=== PATIENT | female | born 1985 | race American Indian/Alaskan Native ===

== ENCOUNTER 2016-11-05 19:24 | Emergency (ER) | payer OTHER ==
[2016-11-05 20:45] LABS: Bacteria,Urine 1+ /HPF (Negative); Bilirubin,Urine NEG (Negative); Blood,Urine SM (Negative); Ketones,Urine NEG (Negative); Leukocyte Esterase,Urine NEG (Negative); Mucus,Urine FEW /HPF; Nitrite,Urine NEG (Negative); Protein,Urine <15 mg/dL mg/dL (Negative); Urobilinogen,Urine < 2.0 mg/dL (<2.0)
[2016-11-05 21:23] LABS: Basophils % (Auto) 0.4 % (0.0-1.8); Eosinophils % (Auto) 2.2 % (0.0-4.3); Hematocrit 35.4 % (30.3-42.9); Hemoglobin 11.9 gm/dl (10.1-14.3); Mean Corpuscular HGB Conc 34 % (30-34); Mean Corpuscular Hemoglobin 30 pg (28-32); Mean Corpuscular Volume 91 fl (79-97); Platelet Count 228 K/mm3 (140-440); Red Blood Count 3.91 M/mm3 (3.65-5.03); White Blood Count 6.4 K/mm3 (4.5-11.0)
[2016-11-05 21:49] LABS: Alanine Aminotransferase 8 units/L (7-56); Albumin 3.8 g/dL (3.9-5); Albumin/Globulin Ratio 1.1 %; Alkaline Phosphatase 52 units/L (35-129); Anion Gap 19 mmol/L; BUN/Creatinine Ratio 11.66; Blood Urea Nitrogen 7 mg/dL (7-17); Calcium 8.8 mg/dL (8.4-10.2); Carbon Dioxide 23 mmol/L (22-30); Chloride 100.9 mmol/L (98-107); Glucose 140 mg/dL (65-100); Lipase 23 units/L (13-60); Potassium 3.6 mmol/L (3.6-5.0); Sodium 139 mmol/L (137-145); Total Protein 7.2 g/dL (6.3-8.2)
--- NOTE | 2016-11-06 06:30 | Emergency Department Report ---
ED General Adult HPI - General Chief complaint: Abdominal Pain Stated complaint: SNEEZING/FATIGUE Time Seen by Provider: 11/06/16 06:19 Source: patient Mode of arrival: Ambulatory Limitations: No Limitations - History of Present Illness Initial comments: Patient complains of some vague abdominal pain which she actually states she forgot about by the time of my encounter. She states that she forgot why she came here. Then she remembered she felt weak and had a child sick at home and was concerned. She stated that she was sneezing. She is not complaining of lower back pain or abdominal pain at this point as noted in the triage record. She states she needs a primary care provider and a work excuse. -: Gradual, days(s) Location: back, abdomen Radiation: non-radiation Severity scale (0 -10): 3 Quality: aching Consistency: now resolved Improves with: none Associated Symptoms: denies other symptoms (except as above) Treatments Prior to Arrival: none - Related Data Allergies Allergy/AdvReac Type Severity Reaction Status Date / Time aspirin Allergy Hives Verified 11/05/16 19:57 ED Review of Systems ROS: Stated complaint: SNEEZING/FATIGUE Other details as noted in HPI Constitutional: denies: chills, fever Eyes: denies: eye pain, eye discharge, vision change ENT: denies: ear pain, throat pain Respiratory: other (cold symptoms sneezing). denies: cough, shortness of breath , wheezing Cardiovascular: denies: chest pain, palpitations Endocrine: no symptoms reported Gastrointestinal: abdominal pain. denies: nausea, diarrhea Genitourinary: denies: urgency, dysuria, discharge Musculoskeletal: back pain. denies: joint swelling, arthralgia Skin: denies: rash, lesions Neurological: denies: headache, weakness, paresthesias Psychiatric: denies: anxiety, depression Hematological/Lymphatic: denies: easy bleeding, easy bruising ED Past Medical Hx - Past Medical History Previous Medical History?: Yes Hx Kidney Stones: Yes Hx Asthma: Yes - Surgical History Past Surgical History?: Yes Hx Breast Surgery: Yes (Reduction) - Social History Smoking Status: Current Every Day Smoker Substance Use Type: Alcohol ED Physical Exam - General Limitations: No Limitations General appearance: alert, in no apparent distress - Head Head exam: Present: atraumatic, normocephalic - Eye Eye exam: Present: normal appearance, PERRL, EOMI. Absent: scleral icterus - ENT ENT exam: Present: normal orophraynx, mucous membranes moist - Neck Neck exam: Present: normal inspection. Absent: tenderness, meningismus, lymphadenopathy - Respiratory Respiratory exam: Present: normal lung sounds bilaterally. Absent: respiratory distress - Cardiovascular Cardiovascular Exam: Present: regular rate, normal rhythm. Absent: systolic murmur, diastolic murmur, rubs, gallop - GI/Abdominal GI/Abdominal exam: Present: soft, normal bowel sounds. Absent: distended, tenderness, guarding, rebound, rigid, organomegaly, mass - Extremities Exam Extremities exam: Present: normal inspection - Back Exam Back exam: Present: normal inspection - Neurological Exam Neurological exam: Present: alert, oriented X3, CN II-XII intact. Absent: motor sensory deficit - Psychiatric Psychiatric exam: Present: normal affect, normal mood - Skin Skin exam: Present: warm, dry, intact, normal color. Absent: rash ED Course Vital Signs 11/05/16 11/06/16 19:50 06:15 Temperature 98.3 F Pulse Rate 69 84 Respiratory 18 16 Rate Blood Pressure 132/78 134/59 [Right] O2 Sat by Pulse 100 98 Oximetry ED Medical Decision Making - Lab Data Result diagrams: 11/05/16 20:50 11/05/16 20:50 Laboratory Results - last 24 hr 11/05/16 11/05/16 11/05/16 20:00 20:50 20:50 WBC 6.4 RBC 3.91 Hgb 11.9 Hct 35.4 MCV 91 MCH 30 MCHC 34 RDW 14.0 Plt Count 228 Lymph % (Auto) 36.1 H [place] % (Auto) 6.1 Eos % (Auto) 2.2 Baso % (Auto) 0.4 Lymph # 2.3 [place] # 0.4 Eos # 0.1 Baso # 0.0 Seg Neutrophils % 55.2 Seg Neutrophils # 3.6 Sodium 139 Potassium 3.6 Chloride 100.9 Carbon Dioxide 23 Anion Gap 19 BUN 7 Creatinine 0.6 L Estimated GFR > 60 BUN/Creatinine Ratio 11.66 Glucose 140 H Calcium 8.8 Total Bilirubin 0.20 AST 13 ALT 8 Alkaline Phosphatase 52 Total Protein 7.2 Albumin 3.8 L Albumin/Globulin Ratio 1.1 Lipase 23 HCG, Qual Urine Color Yellow Urine Turbidity Clear Urine pH 7.0 Ur Specific [place] 1.017 Urine Protein <15 mg/dl Urine Glucose (UA) Neg Urine Ketones Neg Urine Blood Sm Urine Nitrite Neg Urine Bilirubin Neg Urine Urobilinogen < 2.0 Ur Leukocyte Esterase Neg Urine WBC (Auto) 1.0 Urine RBC (Auto) 3.0 U Epithel Cells (Auto) 3.0 Urine Bacteria (Auto) 1+ Urine Mucus Few 11/05/16 20:50 WBC RBC Hgb Hct MCV MCH MCHC RDW Plt Count Lymph % (Auto) [place] % (Auto) Eos % (Auto) Baso % (Auto) Lymph # [place] # Eos # Baso # Seg Neutrophils % Seg Neutrophils # Sodium Potassium Chloride Carbon Dioxide Anion Gap BUN Creatinine Estimated GFR BUN/Creatinine Ratio Glucose Calcium Total Bilirubin AST ALT Alkaline Phosphatase Total Protein Albumin Albumin/Globulin Ratio Lipase HCG, Qual Negative Urine Color Urine Turbidity Urine pH Ur Specific [place] Urine Protein Urine Glucose (UA) Urine Ketones Urine Blood Urine Nitrite Urine Bilirubin Urine Urobilinogen Ur Leukocyte Esterase Urine WBC (Auto) Urine RBC (Auto) U Epithel Cells (Auto) Urine Bacteria (Auto) Urine Mucus Critical care attestation.: If time is entered above; I have spent that time in minutes in the direct care of this critically ill patient, excluding procedure time. ED Disposition Clinical Impression: Viral illness Disposition: DC-01 TO HOME OR SELFCARE Is pt being admited?: No Does the pt Need Aspirin: No Condition: Stable Instructions: Abdominal Pain (ED), Viral Syndrome (ED) Additional Instructions: [id number] medicine is recommended for sneezing such as Zyrtec or Claritin. Follow-up with a primary care provider. Return any acute change or problem as needed. Referrals: PRIMARY MD JUDITH [Primary Care Provider] - 3-5 Days [facility] [Provider Group] - 3-5 Days ADIA BANUELOS MD [Staff Physician] - 3-5 Days Forms: Work/School Release Form(ED) Time of Disposition: 06:57
[2016-11-06 08:16] VITALS: BP 115/65
== END 2016-11-06 07:30 | disposition home or self-care (01) ==
LOC: ED 19:24
DX: B34.9 Viral infection, unspecified (principal); J45.909 Unspecified asthma, uncomplicated; F17.200 Nicotine dependence, unspecified, uncomplicated
CPT/HCPCS: 36415; 80053; 81001; 83690; 84703; 85025

== ENCOUNTER 2017-11-04 20:42 | Emergency (ER) | payer OTHER ==
[2017-11-04 21:16] VITALS: BP 137/80
[2017-11-04] MEDS ORDERED: PROVENTIL IH ONE (21:18)
[2017-11-04 21:44] LABS: Basophils % (Auto) 0.5 % (0.0-1.8); Eosinophils % (Auto) 0.2 % (0.0-4.3); Hematocrit 36.6 % (30.3-42.9); Hemoglobin 12.2 gm/dl (10.1-14.3); Lymphocytes # (Auto) 1.4 K/mm3 (1.2-5.4); Lymphocytes % (Auto) 20.4 % (13.4-35.0); Mean Corpuscular HGB Conc 33 % (30-34); Mean Corpuscular Hemoglobin 30 pg (28-32); Mean Corpuscular Volume 89 fl (79-97); Monocytes # (Auto) 0.4 K/mm3 (0.0-0.8); Monocytes % (Auto) 6.5 % (0.0-7.3); Platelet Count 263 K/mm3 (140-440); Red Cell Distribution Width 14.2 % (13.2-15.2)
[2017-11-04 21:57] LABS: BUN/Creatinine Ratio 11; Blood Urea Nitrogen 9 mg/dL (7-17); Calcium 8.9 mg/dL (8.4-10.2); Hemolysis Index 2
--- NOTE | 2017-11-04 23:55 | XRay Report ---
FINAL REPORT EXAM: XR CHEST ROUTINE 2V HISTORY: cough with wheeze TECHNIQUE: PA and lateral views of the chest Comparison: None FINDINGS: Visualization of fine detail in portions of the chest is somewhat limited by artifact created by large body habitus. There is no definite evidence of infiltrate and no evidence of pneumothorax or pleural fluid collection. The cardiomediastinal silhouette is normal in appearance. The bony structures are unremarkable. IMPRESSION: 1. Study somewhat degraded by artifact created by large body habitus. 2. No definite evidence of an acute pulmonary process.
--- NOTE | 2017-11-05 00:15 | Emergency Department Report ---
- General Chief Complaint: Fever Stated Complaint: CHILLS FEVER Time Seen by Provider: 11/04/17 23:24 Source: patient Mode of arrival: Ambulatory Limitations: No Limitations - History of Present Illness Initial Comments: Patient is a 32-year-old female past medical history of asthma who is complaining of 2 days with fever cough and congestion and body aches. Patient states that she has had a mild wheezes well. His states cough is nonproductive. Patient denies any nausea vomiting diarrhea at this time. - Related Data Previous Rx's Medication Instructions Recorded Last Taken Type ALBUTEROL Inhaler [ProAir HFA 2 puff IH QID PRN #1 inhalation 11/05/17 Unknown Rx Inhaler] Azithromycin [Zithromax Z-JOSÉ MANUEL] 250 mg PO DAILY #6 tablet 11/05/17 Unknown Rx HYDROcodone/APAP 5-325 [[place] 1 each PO Q6HR PRN #12 tablet 11/05/17 Unknown Rx 5/325] predniSONE [Deltasone] 20 mg PO QDAY #5 tab 11/05/17 Unknown Rx Allergies Allergy/AdvReac Type Severity Reaction Status Date / Time aspirin Allergy Hives Verified 11/05/16 19:57 ED Review of Systems ROS: Stated complaint: CHILLS FEVER Other details as noted in HPI Comment: All other systems reviewed and negative ED Past Medical Hx - Past Medical History Hx Kidney Stones: Yes Hx Asthma: Yes - Surgical History Hx Breast Surgery: Yes (Reduction) - Social History Smoking Status: Current Every Day Smoker Substance Use Type: Marijuana - Medications Home Medications: Home Medications Medication Instructions Recorded Confirmed Last Taken Type ALBUTEROL Inhaler [ProAir HFA 2 puff IH QID PRN #1 inhalation 11/05/17 Unknown Rx Inhaler] Azithromycin [Zithromax Z-JOSÉ MANUEL] 250 mg PO DAILY #6 tablet 11/05/17 Unknown Rx HYDROcodone/APAP 5-325 [[place] 1 each PO Q6HR PRN #12 tablet 11/05/17 Unknown Rx 5/325] predniSONE [Deltasone] 20 mg PO QDAY #5 tab 11/05/17 Unknown Rx ED Physical Exam - General Limitations: No Limitations General appearance: alert, in no apparent distress - Head Head exam: Present: atraumatic, normocephalic - Eye Eye exam: Present: normal appearance - ENT ENT exam: Present: mucous membranes moist - Neck Neck exam: Present: normal inspection - Respiratory Respiratory exam: Present: normal lung sounds bilaterally, wheezes (mild). Absent: respiratory distress, rales, rhonchi, stridor, decreased breath sounds - Cardiovascular Cardiovascular Exam: Present: regular rate, normal rhythm. Absent: systolic murmur, diastolic murmur, rubs, gallop - GI/Abdominal GI/Abdominal exam: Present: soft, normal bowel sounds - Extremities Exam Extremities exam: Present: normal inspection - Back Exam Back exam: Present: normal inspection - Neurological Exam Neurological exam: Present: alert, oriented X3 - Psychiatric Psychiatric exam: Present: normal affect, normal mood - Skin Skin exam: Present: warm, dry, intact, normal color. Absent: rash ED Course Vital Signs 11/04/17 21:09 Temperature 102.9 F H Pulse Rate 107 H Respiratory 18 Rate Blood Pressure 137/80 O2 Sat by Pulse 97 Oximetry ED Medical Decision Making - Lab Data Result diagrams: 11/04/17 21:25 11/04/17 21:25 - Medical Decision Making The patient's lungs did clear after a short neb treatment. Patient chest x-ray is within normal limits. Patient will be discharged home with Mr. toby patterson. Critical care attestation.: If time is entered above; I have spent that time in minutes in the direct care of this critically ill patient, excluding procedure time. ED Disposition Clinical Impression: Acute bronchitis Qualifiers: Bronchitis organism: unspecified organism Qualified Code(s): J20.9 - Acute bronchitis, unspecified Disposition: DC-01 TO HOME OR SELFCARE Is pt being admited?: No Does the pt Need Aspirin: No Condition: Stable Instructions: Acute Bronchitis (ED) Referrals: PRIMARY CARE, [Primary Care Provider] - 3-5 Days Time of Disposition: 00:15
== END 2017-11-05 02:09 | disposition home or self-care (01) ==
LOC: ED 20:42
DX: J20.9 Acute bronchitis, unspecified (principal); Z88.6 Allergy status to analgesic agent; F17.200 Nicotine dependence, unspecified, uncomplicated
CPT/HCPCS: 36415; 71046; 80048; 85025; 94640

== ENCOUNTER 2018-11-27 21:38 | Emergency (ER) | payer SELFPAY ==
[2018-11-27 22:10] VITALS: BP 154/82
--- NOTE | 2018-11-27 22:11 | Event Note ---
ED Screening Note Date of service: 11/27/18 Time: 22:06 ED Screening Note: This is a 33 y.o. F. that presents to the ER with shooting pain from right buttock to right thigh since last night. Patient denies injury or back pain. PMH of asthma Current smoker This initial assessment/diagnostic orders/clinical plan/treatment(s) is/are subject to change based on patients health status, clinical progression and re- assessment by fellow clinical providers in the ED. Further treatment and workup at subsequent clinical providers discretion. Patient/guardian urged not to elope from the ED as their condition may be serious if not clinically assessed and managed. Initial orders include:
--- NOTE | 2018-11-27 23:24 | Emergency Department Report ---
ED Extremity Problem HPI - General Chief complaint: Extremity Injury, Lower Stated complaint: RIGHT LEG PAIN Time Seen by Provider: 11/27/18 22:05 Source: patient Mode of arrival: Ambulatory Limitations: Physical Limitation - History of Present Illness Initial comments: 33-year-old -[place] female presents to the emergency room for right leg pain that started 2 days ago. Patient states that she was having intercourse Friday night and she woke up with right thigh pain. Patient reports that she took Tylenol around 3 PM but did not help much. Patient denies any trauma no falls. Onset/Timin Location: right, other (thign) History of Same: No Severity scale (0 -10): 10 Quality: stabbing, sharp Consistency: intermittent Improves with: nothing Worsens with: other (stretching and bending) Associated Symptoms: denies other symptoms - Related Data Previous Rx's Medication Instructions Recorded Last Taken Type ALBUTEROL Inhaler (OR & NICU) 2 puff IH QID PRN #1 inhalation 11/05/17 Unknown Rx [ProAir HFA Inhaler] Azithromycin [Zithromax Z-JOSÉ MANUEL] 250 mg PO DAILY #6 tablet 11/05/17 Unknown Rx HYDROcodone/APAP 5-325 [[place] 1 each PO Q6HR PRN #12 tablet 11/05/17 Unknown Rx 5/325] predniSONE [Deltasone] 20 mg PO QDAY #5 tab 11/05/17 Unknown Rx tiZANidine [Zanaflex 4mg TAB] 4 mg PO TID PRN #15 tablet 11/27/18 Unknown Rx Allergies Allergy/AdvReac Type Severity Reaction Status Date / Time aspirin Allergy Hives Verified 11/05/16 19:57 ED Review of Systems ROS: Stated complaint: RIGHT LEG PAIN Other details as noted in HPI Comment: All other systems reviewed and negative ED Past Medical Hx - Past Medical History Previous Medical History?: Yes Hx Kidney Stones: Yes Hx Asthma: Yes Additional medical history: Obesity - Surgical History Past Surgical History?: Yes Hx Breast Surgery: Yes (Reduction) - Social History Smoking Status: Current Every Day Smoker Substance Use Type: None - Medications Home Medications: Home Medications Medication Instructions Recorded Confirmed Last Taken Type ALBUTEROL Inhaler (OR & NICU) 2 puff IH QID PRN #1 inhalation 11/05/17 Unknown Rx [ProAir HFA Inhaler] Azithromycin [Zithromax Z-JOSÉ MANUEL] 250 mg PO DAILY #6 tablet 11/05/17 Unknown Rx HYDROcodone/APAP 5-325 [[place] 1 each PO Q6HR PRN #12 tablet 11/05/17 Unknown Rx 5/325] predniSONE [Deltasone] 20 mg PO QDAY #5 tab 11/05/17 Unknown Rx tiZANidine [Zanaflex 4mg TAB] 4 mg PO TID PRN #15 tablet 11/27/18 Unknown Rx ED Physical Exam - General Limitations: Physical Limitation General appearance: alert, in no apparent distress - Head Head exam: Present: atraumatic, normocephalic - Eye Eye exam: Present: normal appearance - ENT ENT exam: Present: mucous membranes moist - Expanded Lower Extremity Exam Right Hip exam: Present: full ROM. Absent: swelling Upper Leg exam: Present: tenderness - Expanded Back Exam Expanded Back exam: Sciatic Notch Tenderness: Right, Positive Straight Leg Raise: Right - Neurological Exam Neurological exam: Present: alert, oriented X3 - Psychiatric Psychiatric exam: Present: normal affect, normal mood - Skin Skin exam: Present: warm, dry, intact, normal color. Absent: rash ED Course Vital Signs 11/27/18 22:06 Temperature 98.5 F Pulse Rate 105 H Respiratory 16 Rate Blood Pressure 154/82 O2 Sat by Pulse 98 Oximetry ED Medical Decision Making - Medical Decision Making 33-year-old -[place] female presents to the emergency room for right leg pain that started 2 days ago. Patient states that she was having intercourse Friday night and she woke up with right thigh pain. Patient reports that she took Tylenol around 3 PM but did not help much. Patient denies any trauma no falls. Patient has a muscle strain to her right thigh. Discussed the patient I'll place her on Zanaflex and she can take [id number] Tylenol. Patient has an allergy to aspirin Critical care attestation.: If time is entered above; I have spent that time in minutes in the direct care of this critically ill patient, excluding procedure time. ED Disposition Clinical Impression: Muscle strain of right thigh Disposition: DC-01 TO HOME OR SELFCARE Is pt being admited?: No Does the pt Need Aspirin: No Condition: Stable Prescriptions: tiZANidine [Zanaflex 4mg TAB] 4 mg PO TID PRN #15 tablet PRN Reason: Muscle Spasm Referrals: ANDRAE THRAHSER MD [Primary Care Provider] - 3-5 Days Forms: Accompanied Note
== END 2018-11-27 23:40 | disposition home or self-care (01) ==
LOC: ED 21:38
DX: S76.911A Strain of unspecified muscles, fascia and tendons at thigh level, right thigh, initial encounter (principal); J45.909 Unspecified asthma, uncomplicated; F17.200 Nicotine dependence, unspecified, uncomplicated; Z88.6 Allergy status to analgesic agent; X58.XXXA Exposure to other specified factors, initial encounter; Y93.89 Activity, other specified; Y92.89 Other specified places as the place of occurrence of the external cause; Y99.8 Other external cause status

== ENCOUNTER 2020-07-28 21:15 | Emergency (ER) | payer SELFPAY ==
[2020-07-28 22:05] VITALS: BP 144/84
[2020-07-28 23:10] LABS: Bacteria,Urine 1+ /HPF (Negative); Bilirubin,Urine NEG (Negative); Blood,Urine LG (Negative); Color,Urine Yellow (Yellow); Urobilinogen,Urine < 2.0 mg/dL (<2.0)
[2020-07-28 23:25] LABS: Basophils % (Auto) 0.5 % (0.0-1.8); Eosinophils # (Auto) 0.2 K/mm3 (0.0-0.4); Eosinophils % (Auto) 2.1 % (0.0-4.3); Hemoglobin 12.9 gm/dl (10.1-14.3); Lymphocytes # (Auto) 3.2 K/mm3 (1.2-5.4); Lymphocytes % (Auto) 38.1 % (13.4-35.0); Mean Corpuscular HGB Conc 34 % (30-34); Mean Corpuscular Volume 91 fl (79-97); Monocytes # (Auto) 0.6 K/mm3 (0.0-0.8); Monocytes % (Auto) 6.7 % (0.0-7.3); Platelet Count 224 K/mm3 (140-440); Red Blood Count 4.18 M/mm3 (3.65-5.03); Red Cell Distribution Width 14.9 % (13.2-15.2)
[2020-07-28 23:35] LABS: Alanine Aminotransferase 8 units/L (7-56); Albumin 4.1 g/dL (3.9-5); Blood Urea Nitrogen 6 mg/dL (7-17); Calcium 9.2 mg/dL (8.4-10.2); Hemolysis Index 0
[2020-07-28 23:39] LABS: BUN/Creatinine Ratio 9
== END 2020-07-29 03:37 | disposition left against medical advice (07) ==
LOC: ED 21:15
DX: M25.552 Pain in left hip (principal); Z53.21 Procedure and treatment not carried out due to patient leaving prior to being seen by health care provider
CPT/HCPCS: 36415; 80053; 81001; 84703; 85025; 87086

== ENCOUNTER 2020-09-25 03:07 | Emergency (ER) | payer SELFPAY ==
[2020-09-25 03:19] VITALS: BP 148/85
[2020-09-25] MEDS ORDERED: IPRATROPIUM 0.02% NEBU 2.5 ML IH ONE (03:35)
[2020-09-25] MEDS ORDERED: ALBUTEROL 2.5 MG/3 ML NEBU IH ONE (03:35)
[2020-09-25] MEDS ORDERED: dexAMETHasone 4 MG/ML VIAL IM ONE (03:35)
--- NOTE | 2020-09-25 04:39 | Emergency Department Report ---
ED Asthma HPI - General Chief Complaint: Adult Asthma Stated Complaint: ASTHMA ATTACK Time Seen by Provider: 09/25/20 03:35 Source: patient Mode of arrival: Ambulatory Limitations: No Limitations - History of Present Illness Initial Comments: 34-year-old obese F Nigerian female past medical history of asthma but the emerge department complaining of development of a pressure tract infection associated with cough congestion coryza and and wheezing which been progressive worsening since the onset this past . Reports no hemoptysis no hematemesis hematochezia, no nausea, no vomiting, no diarrhea MD Complaint: "asthma attack", wheezing Severity: moderate Context: recent URI, ran out of meds Associated Symptoms: none Treatments Prior to Arrival: inhaled bronchodilator - Related Data Previous Rx's Medication Instructions Recorded Last Taken Type Albuterol Mdi (or & Nicu Only) 2 puff IH QID PRN #1 inhalation 11/05/17 Unknown Rx [ProAir HFA Inhaler] Azithromycin [Zithromax Z-JOSÉ MANUEL] 250 mg PO DAILY #6 tablet 11/05/17 Unknown Rx HYDROcodone/APAP 5-325 [[place] 1 each PO Q6HR PRN #12 tablet 11/05/17 Unknown Rx 5/325] predniSONE [Deltasone] 20 mg PO QDAY #5 tab 11/05/17 Unknown Rx tiZANidine [Zanaflex 4mg TAB] 4 mg PO TID PRN #15 tablet 11/27/18 Unknown Rx Albuterol Mdi (or & [place]u Only) 2 puff IH QID PRN #1 inhalation 09/25/20 Unknown Rx [ProAir HFA Inhaler] Montelukast [Singulair] 10 mg PO QPM #14 tablet 09/25/20 Unknown Rx predniSONE [Deltasone] 20 mg PO QDAY #5 tab 09/25/20 Unknown Rx Allergies Allergy/AdvReac Type Severity Reaction Status Date / Time aspirin Allergy Hives Verified 11/05/16 19:57 ED Review of Systems ROS: Stated complaint: ASTHMA ATTACK Other details as noted in HPI Comment: All other systems reviewed and negative ED Past Medical Hx - Past Medical History Hx Kidney Stones: Yes Hx Asthma: Yes Additional medical history: Obesity - Surgical History Hx Breast Surgery: Yes (Reduction) - Social History Smoking Status: Current Every Day Smoker - Medications Home Medications: Home Medications Medication Instructions Recorded Confirmed Last Taken Type Albuterol Mdi (or & [place] Only) 2 puff IH QID PRN #1 inhalation 11/05/17 Unknown Rx [ProAir HFA Inhaler] Azithromycin [Zithromax Z-JOSÉ MANUEL] 250 mg PO DAILY #6 tablet 11/05/17 Unknown Rx HYDROcodone/APAP 5-325 [[place] 1 each PO Q6HR PRN #12 tablet 11/05/17 Unknown Rx 5/325] predniSONE [Deltasone] 20 mg PO QDAY #5 tab 11/05/17 Unknown Rx tiZANidine [Zanaflex 4mg TAB] 4 mg PO TID PRN #15 tablet 11/27/18 Unknown Rx Albuterol Mdi (or & [place]u Only) 2 puff IH QID PRN #1 inhalation 09/25/20 Unknown Rx [ProAir HFA Inhaler] Montelukast [Singulair] 10 mg PO QPM #14 tablet 09/25/20 Unknown Rx predniSONE [Deltasone] 20 mg PO QDAY #5 tab 09/25/20 Unknown Rx ED Physical Exam - General Limitations: No Limitations General appearance: alert, in no apparent distress - Head Head exam: Present: atraumatic, normocephalic - Eye Eye exam: Present: normal appearance - ENT ENT exam: Present: mucous membranes moist - Neck Neck exam: Present: normal inspection, full ROM - Respiratory Respiratory exam: Present: normal lung sounds bilaterally, wheezes, accessory muscle use. Absent: respiratory distress - Cardiovascular Cardiovascular Exam: Present: regular rate, normal rhythm. Absent: systolic murmur, diastolic murmur, rubs, gallop - GI/Abdominal GI/Abdominal exam: Present: soft, normal bowel sounds - Extremities Exam Extremities exam: Present: normal inspection - Back Exam Back exam: Present: normal inspection - Neurological Exam Neurological exam: Present: alert, oriented X3. Absent: motor sensory deficit - Psychiatric Psychiatric exam: Present: normal affect, normal mood - Skin Skin exam: Present: warm, dry, intact, normal color. Absent: rash ED Course Vital Signs 09/25/20 03:16 Temperature 99.4 F Pulse Rate 101 H Respiratory 18 Rate Blood Pressure 148/85 O2 Sat by Pulse 98 Oximetry ED Medical Decision Making - Radiology Data Radiology results: report reviewed - Medical Decision Making No altered mental status, saddle respirations, belly breathing or other signs of impending ventilatory failure. No intubations or recent admissions to the hospital for asthma. Unlikely pneumonia, CHF, COPD, GERD Workup Review include a chest x-ray which was normal she also received steroids and albuterol Therapies: Prednisone 50 mg PO. Albuterol nebulizer Reassessment: Patient improved with albuterol and ipratropium in less than 3 hours. Disposition: Discharge home with return precautions. Advised to follow up with primary care physician within next 24-48 hours. Aside from this acute exacerbation patient has been well controlled on baseline home regimen. Rx short steroid course, albuterol, Singulair, Flovent Critical care attestation.: If time is entered above; I have spent that time in minutes in the direct care of this critically ill patient, excluding procedure time. ED Disposition Clinical Impression: Asthma Disposition: - TO HOME OR SELFCARE Is pt being admited?: No Does the pt Need Aspirin: No Condition: Stable Instructions: Asthma (ED), Asthma, Adult, Cough, Adult, [id number], How to Use a Metered Dose Inhaler, How to Use a Nebulizer, Adult Additional Instructions: You evaluate emergency department today for shortness of breath. Symptoms improved with albuterol and steroids and evaluation did not show evidence of any medical conditions requiring emergent intervention at this time. Did prescribe a prescription for the same the medications that were given to you today the medications that you were taking at home prior to this episode. Please follow- up with your primary care for physician within 2 days. Return to emergency department should you experience worsening shortness of breath, chest pain, headache, lightheadedness or any other concerning symptoms
--- NOTE | 2020-09-25 05:33 | XRay Report ---
XR chest routine 2V INDICATION / CLINICAL INFORMATION: Asthma. COMPARISON: 11/04/2017 FINDINGS: SUPPORT DEVICES: None. HEART /PULMONARY VASCULATURE: No significant abnormality. LUNGS / PLEURA: Diffuse increased interstitial opacities. No focal airspace consolidation. No pleural effusion. No pneumothorax. ADDITIONAL FINDINGS: No significant additional findings. IMPRESSION: Diffuse increased interstitial opacities may reflect reactive airway disease or interstitial infiltra te. No focal consolidative pneumonia. Signer Name: Donn Zimmerman MD Signed: 09/25/2020 5:29 AM Workstation Name: [id number]
== END 2020-09-25 05:40 | disposition home or self-care (01) ==
LOC: ED 03:07
DX: J45.909 Unspecified asthma, uncomplicated (principal)
CPT/HCPCS: 71046; 94640; 96372; 99283; J1100; 94644